=== PATIENT | female | born 1995 | race Two or more races ===

== ENCOUNTER 2022-12-04 10:11 | Emergency (ER) | payer SELFPAY ==
[~2022-12-04] VITALS: Ht 172.7 cm; Wt 87.1 kg
[2022-12-04 10:31] VITALS: BP 135/94; PULSE 91; RESP 20; TEMP 99; O2SAT 99
[2022-12-04] MEDS ORDERED: KETOROLAC 15 MG/ML VIAL IM ONE (11:10)
[2022-12-04 11:34] LABS: BASOPHILS % (AUTO) 0.5 % (0.0-2.0); EOSINOPHILS # (AUTO) 0.1 K/uL (0-0.4); EOSINOPHILS % (AUTO) 1.2 % (0.0-4.0); HEMATOCRIT 36.8 % (36-48); HEMOGLOBIN 12.5 g/dL (12.0-16.0); LYMPHOCYTES % (AUTO) 22.6 % (20.5-51.1); MEAN CORPUSCULAR HEMOGLOBIN 30 pg (27-31); MEAN CORPUSCULAR HGB CONC 34 g/dL (33-37); MEAN CORPUSCULAR VOLUME 86.8 fL (80-94); MONOCYTES # (AUTO) 0.6 K/uL (0.8-1.0); MONOCYTES % (AUTO) 6.4 % (1.7-9.3); NEUTROPHILS # (AUTO) 6.1 K/uL (1.8-7.7); NEUTROPHILS % (AUTO) 69.3 % (42.2-75.2); PLATELET COUNT (AUTO) 333 K/uL (140-450); RED BLOOD CELL COUNT(AUTO) 4.23 MIL/uL (4.20-5.40); RED CELL DISTRIBUTION WIDTH 13.2 % (11.6-13.7); WHITE BLOOD COUNT (AUTO) 8.8 K/uL (4.8-10.8)
[2022-12-04 11:55] LABS: APPEARANCE,URINE CLEAR (CLEAR); BILIRUBIN,URINE NEGATIVE (NEGATIVE); BLOOD, URINE NEGATIVE (NEGATIVE); COLOR,URINE YELLOW (YELLOW); LEUKOCYTE ESTERASE ,URINE NEGATIVE (NEGATIVE); NITRITE, URINE NEGATIVE (NEGATIVE); PROTEIN,URINE NEGATIVE (NEGATIVE); UGLUCOSE NEGATIVE (NEGATIVE); UROBILINOGEN,URINE 0.2 EU/dL (0.2 - 1)
[2022-12-04 12:14] LABS: ALBUMIN 3.4 g/dL (3.4-5.0); ANION GAP 12.8 (8-16); CALCIUM 8.5 mg/dL (8.5-10.1); CREATININE 0.7 mg/dL (0.6-1.3); POTASSIUM 3.8 mmol/L (3.5-5.1); TOTAL BILIRUBIN 0.2 mg/dL (0.0-1.0); TOTAL PROTEIN, SERUM 6.6 g/dL (6.4-8.2)
[2022-12-04] MEDS ORDERED: LIDOCAINE 5% 1 EA PATCH TP ONE (12:35)
[2022-12-04] MEDS ORDERED: methocarbamoL 500 MG TAB PO STA (12:35)
[2022-12-04] MEDS ORDERED: LID5T TP (13:46)
[2022-12-04] MEDS ORDERED: IBUP-2213 PO (13:46)
[2022-12-04 13:50] VITALS: BP 115/67; PULSE 77; RESP 14; TEMP 97.6; O2SAT 100
== END 2022-12-04 13:55 | disposition home or self-care (01) ==
LOC: MED 10:11
DX: R07.89 Other chest pain (principal); R06.02 Shortness of breath; R10.12 Left upper quadrant pain; Z91.040 Latex allergy status; Z79.899 Other long term (current) drug therapy
CPT/HCPCS: 36415; 71045; 80053; 81003; 81025; 83880; 84484; 85025; 96372; 99285; J1885